=== PATIENT | male | born 1945 | race Caucasian/White ===

== ENCOUNTER 2017-05-12 10:24 | Outpatient (CLI) | payer MEDICARE, OTHER | END 2017-05-12 10:25 | disposition home or self-care (01) | LOC: SC 10:24 | PROVIDERS: ATTEND Internal Medicine Pulmonary Disease | DX: G47.33 Obstructive sleep apnea (adult) (pediatric) (principal); E66.9 Obesity, unspecified; Z68.39 Body mass index [BMI] 39.0-39.9, adult | CPT/HCPCS: 99203; G0463; 99212 ==

== ENCOUNTER 2017-06-30 18:53 | Outpatient (CLI) | payer MEDICARE, OTHER | END 2017-06-30 18:54 | disposition home or self-care (01) | LOC: SC 18:53 | PROVIDERS: ATTEND Internal Medicine Pulmonary Disease | DX: G47.33 Obstructive sleep apnea (adult) (pediatric) (principal); G47.61 Periodic limb movement disorder | CPT/HCPCS: 95810 ==

== ENCOUNTER 2017-07-21 13:03 | Outpatient (CLI) | payer MEDICARE, OTHER | END 2017-07-21 13:04 | disposition home or self-care (01) | LOC: SC 13:03 | PROVIDERS: ATTEND Internal Medicine Pulmonary Disease | DX: G47.33 Obstructive sleep apnea (adult) (pediatric) (principal) | CPT/HCPCS: 99213; G0463; 99212 ==

== ENCOUNTER 2017-09-28 14:38 | Outpatient (CLI) | payer MEDICARE, OTHER | END 2017-09-28 14:39 | disposition home or self-care (01) | LOC: SC 14:38 | PROVIDERS: ATTEND Nurse Practitioner Family | DX: G47.33 Obstructive sleep apnea (adult) (pediatric) (principal) | CPT/HCPCS: 99214; G0463; 99212 ==

== ENCOUNTER 2017-11-27 19:26 | Outpatient (CLI) | payer MEDICARE, OTHER | END 2017-11-27 19:27 | disposition home or self-care (01) | LOC: SC 19:26 | PROVIDERS: ATTEND Internal Medicine Pulmonary Disease | DX: G47.33 Obstructive sleep apnea (adult) (pediatric) (principal); G47.31 Primary central sleep apnea; G47.61 Periodic limb movement disorder | CPT/HCPCS: 95811 ==

== ENCOUNTER 2017-12-08 13:13 | Outpatient (CLI) | payer MEDICARE, OTHER | END 2017-12-08 13:14 | disposition home or self-care (01) | LOC: SC 13:13 | PROVIDERS: ATTEND Nurse Practitioner Family | DX: G47.33 Obstructive sleep apnea (adult) (pediatric) (principal); G47.31 Primary central sleep apnea; G47.61 Periodic limb movement disorder; I49.9 Cardiac arrhythmia, unspecified | CPT/HCPCS: 99215; G0463; 99212 ==

== ENCOUNTER 2018-01-07 08:46 | Outpatient (CLI) | payer MEDICARE, OTHER | END 2018-01-07 08:47 | disposition home or self-care (01) | LOC: SC 08:46 | PROVIDERS: ATTEND Nurse Practitioner Family | DX: G47.33 Obstructive sleep apnea (adult) (pediatric) (principal) | CPT/HCPCS: 99215; G0463; 99212 ==

== ENCOUNTER 2018-01-28 09:15 | Outpatient (CLI) | payer MEDICARE, OTHER | END 2018-01-28 09:16 | disposition home or self-care (01) | LOC: SC 09:15 | PROVIDERS: ATTEND Nurse Practitioner Family | DX: G47.33 Obstructive sleep apnea (adult) (pediatric) (principal) | CPT/HCPCS: 99214; G0463; 99212 ==

== ENCOUNTER 2018-03-04 09:40 | Outpatient (CLI) | payer MEDICARE, OTHER | END 2018-03-04 09:41 | disposition home or self-care (01) | LOC: SC 09:40 | PROVIDERS: ATTEND Nurse Practitioner Family | DX: G47.33 Obstructive sleep apnea (adult) (pediatric) (principal) | CPT/HCPCS: 99214; G0463; 99212 ==

== ENCOUNTER 2018-03-17 10:18 | Outpatient (CLI) | payer MEDICARE, OTHER ==
--- NOTE | 2018-03-17 12:05 | XRAY Report ---
Reason: LUMBAR SPINAL STENOSIS, HIP PAIN, RIGHT AND LEFT Procedure Date: 03/17/2018 Accession Number: [id number] / [id number] Procedure: XR - Lumbar Spine 2 View CPT Code: FULL RESULT: EXAM: LUMBOSACRAL SPINE RADIOGRAPHY EXAM DATE: 03/17/2018 10:42 AM. CLINICAL HISTORY: Lumbar spinal stenosis, hip pain, right and left. COMPARISONS: None. TECHNIQUE: 3 views. FINDINGS: Alignment: There is mild approximately 2 mm retrolisthesis of L4 on L5. There is relative straightening with loss of the normal lumbar lordosis. No significant scoliosis. Bones: Five jlo-hef-okanfzu lumbar vertebral bodies are present. There is mild loss of vertebral body height predominantly L2, less than 25%. Disks: Significant disk space degenerative changes including marginal osteophytosis are seen above and below the level of mild vertebral body height loss in the upper lumbar spine. Facets: There is moderate to severe facet arthropathy predominately at L5 and L4. Sacroiliac Joints: Unremarkable. Soft Tissues: Normal. The visualized bowel gas pattern is normal. IMPRESSION: Degenerative changes as well as mild loss of the L2 vertebral body height, less than 25%. RADIA
--- NOTE | 2018-03-17 12:57 | XRAY Report ---
Reason: LUMBAR SPINAL STENOSIS, HIP PAIN, RIGHT AND LEFT Procedure Date: 03/17/2018 Accession Number: [id number] / [id number] Procedure: XR - Hips 2V BILAT CPT Code: FULL RESULT: EXAM: BILATERAL HIP RADIOGRAPHY EXAM DATE: 03/17/2018 10:42 AM. CLINICAL HISTORY: Lumbar spinal stenosis, hip pain, right and left. COMPARISON: None. TECHNIQUE: 2 views each. FINDINGS: Bones: Normal. No fractures or bone lesion. Right Hip: No dislocation. The hip joint space is moderately narrowed. Left Hip: No dislocation. The hip joint space is mildly to moderately narrowed. Soft Tissues: Normal. No soft tissue swelling. IMPRESSION: No evidence of fracture or dislocation. Degenerative changes. RADIA
== END 2018-03-17 10:19 | disposition home or self-care (01) ==
LOC: DI 10:18
PROVIDERS: ATTEND Family Medicine
DX: M48.061 Spinal stenosis, lumbar region without neurogenic claudication (principal); M47.816 Spondylosis without myelopathy or radiculopathy, lumbar region; M25.78 Osteophyte, vertebrae; M25.552 Pain in left hip; M25.551 Pain in right hip
CPT/HCPCS: 72100; 73521

== ENCOUNTER 2018-03-26 13:02 | Outpatient (CLI) | payer MEDICARE, OTHER ==
--- NOTE | 2018-03-27 07:07 | MRI Report ---
Reason: LUMBAR SPINAL STENOSIS Procedure Date: 03/26/2018 Accession Number: [id number] / [id number] Procedure: MRI - Lumbar Spine W/O CPT Code: FULL RESULT: EXAM: MRI LUMBAR SPINE WITHOUT CONTRAST EXAM DATE: 03/26/2018 01:50 PM. CLINICAL HISTORY: Lumbar spinal stenosis. COMPARISON: LUMBAR SPINE 2 VIEW 03/17/2018 10:27 AM. TECHNIQUE: Multiplanar, multisequence T1-weighted and fluid-sensitive sequences of the lumbar spine from T11 to S1 without contrast. Other: None. FINDINGS: Spinal Canal: The conus terminates at L1. The conus medullaris is unremarkable. The nerve roots of the cauda equina have a wavy appearance, related to high-grade spinal canal stenosis in the mid to lower lumbar spine. On axial images, the nerve roots are centrally located, suspicious for arachnoiditis. Alignment: Retrolisthesis at L2-L3, L3-L4, L4-L5, and L5-S1 measure less than 4 mm. The normal lumbar lordosis is straightened. Bone Marrow: Five zdd-aak-pnzjwhu lumbar vertebral bodies are assumed. Type I Modic endplate changes are present from L1-L2 through L5-S1. Disk Levels/Facets: T11-T12: There is mild bilateral foraminal narrowing due to facet arthropathy on sagittal images. A minimal disk bulge is present without mass effect on the spinal cord. T12-L1: A disk bulge with facet arthropathy result in mild spinal canal stenosis. There is mild bilateral foraminal narrowing. L1-L2: A disk bulge with ligamentum flavum infolding result in mild spinal canal stenosis. There is mild right foraminal narrowing. The left foramen is patent. L2-L3: A disk bulge with ligamentum flavum infolding result in mild spinal canal stenosis. There is mild bilateral foraminal narrowing, worse on the right. L3-L4: A disk bulge with ligamentum flavum infolding result in moderate spinal canal stenosis. There is moderate bilateral foraminal narrowing. L4-L5: A disk bulge with facet arthropathy and ligamentum flavum infolding result in mild spinal canal stenosis. There is severe left foraminal narrowing due to a superimposed marginal osteophyte. Moderate right foraminal narrowing is present. L5-S1: A posterior disk osteophyte complex with facet arthropathy and ligamentum flavum infolding result in mild spinal canal stenosis. There is severe left and moderate right foraminal narrowing. Musculature: There is mild diffuse fatty atrophy of the posterior paraspinal muscles without intramuscular edema. Other: A cyst is noted in the right kidney. IMPRESSION: 1. Wavy configuration of centrally located nerve roots of the cauda equina is suspicious for arachnoiditis. 2. Severe multilevel degenerative changes result in moderate spinal canal stenosis at L3-L4. 3. Mild spinal canal stenosis is present at all other lumbar levels. 4. Varying degrees of bilateral foraminal narrowing, most severe on the left at L5-S1. 5. Type I Modic endplate changes are present from L1-L2 through L5-S1. Comment: The following findings are so common in adults without low back pain that while we report their presence, they must be interpreted with caution and in the context of the clinical situation. (Reference Inderjitk et al, Spine 2001) Prevalence of findings in patients without low back pain: Disk degeneration (any evidence): 92% Disk desiccation/T2 signal loss: 83% Disk height loss: 56% Disk bulge: 64% Disk protrusion: 32% Annular tear/high intensity zone: 38% RADIA
== END 2018-03-26 13:03 | disposition home or self-care (01) ==
LOC: DI 13:02
PROVIDERS: ATTEND Family Medicine
DX: M48.061 Spinal stenosis, lumbar region without neurogenic claudication (principal); M51.26 Other intervertebral disc displacement, lumbar region; M25.78 Osteophyte, vertebrae
CPT/HCPCS: 72148

== ENCOUNTER 2018-06-08 08:33 | Outpatient (CLI) | payer MEDICARE, OTHER | END 2018-06-08 08:34 | disposition home or self-care (01) | LOC: SC 08:33 | PROVIDERS: ATTEND Nurse Practitioner Family | DX: G47.33 Obstructive sleep apnea (adult) (pediatric) (principal) | CPT/HCPCS: 99214; G0463; 99212 ==

== ENCOUNTER 2018-07-22 08:37 | Outpatient (CLI) | payer MEDICARE, OTHER | END 2018-07-22 08:38 | disposition home or self-care (01) | LOC: SC 08:37 | PROVIDERS: ATTEND Nurse Practitioner Family | DX: G47.33 Obstructive sleep apnea (adult) (pediatric) (principal); G47.31 Primary central sleep apnea | CPT/HCPCS: 99214; G0463; 99212 ==

== ENCOUNTER 2019-03-24 15:35 | Outpatient (CLI) | payer MEDICARE, OTHER ==
--- NOTE | 2019-03-24 17:03 | XRAY Report ---
Reason: WHEEZING Procedure Date: 03/24/2019 Accession Number: [id number] / [id number] Procedure: WCP - Chest 2 View X-Ray CPT Code: 15415 Final Report FULL RESULT: EXAM: CHEST RADIOGRAPHY EXAM DATE: 03/24/2019 11:49 AM. CLINICAL HISTORY: WHEEZING. COMPARISON: CHEST 2 VIEW PA/LAT 03/15/2018 3:35 PM. TECHNIQUE: 2 views. FINDINGS: Lungs/Pleura: Mild bronchial thickening. No dense consolidation. No pleural effusions. No pneumothorax. Lung volumes increased. Mediastinum: Heart is enlarged. Aorta is mildly tortuous. Other: Degenerative changes of the thoracic spine and both shoulders. IMPRESSION: 1. Cardiomegaly. 2. Bronchial thickening which can be seen with bronchitis or reactive airways disease. No dense consolidation. RADIA
== END 2019-03-24 23:59 | disposition home or self-care (01) ==
LOC: DI.WCP 15:35
PROVIDERS: ATTEND Family Medicine
DX: R06.2 Wheezing (principal); I51.7 Cardiomegaly
CPT/HCPCS: 71046

== ENCOUNTER 2019-08-08 15:51 | Outpatient (CLI) | payer MEDICARE, OTHER ==
--- NOTE | 2019-08-08 14:47 | SLEEP CARE CONSULTATION ---
Information from patient questionnaire entered by Jeana Sutherland. I have reviewed and concur with the information entered by Jeana Sutherland. This document represents the service I personally performed and the decisions made by me, Soco Pérze, RN, MSN, VP OF PRODUCT. History of Present Illness Service Date and Time: 08/08/2019 1400 Previous diagnosis: Very Severe, Obstructive Sleep Apnea-Hypopnea Syndrome AHI: 60.0 Reason for follow up: annual Equipment type: BiPAP Equipment obtained from: [employer] (getting supplies) Mask style: Full face Mask brand: (old mask) Backup mask available: Yes (old mask ) Last cushion change: a few days ago Type of Sleep Study: Polysomnography CPAP Compliance Data - Data Reviewed with Patient Average duration of nightly device use: 5H 19M Compliance rate %: 77.2 Current pressure setting (cmH2O): 16/10 Humidity settin Heated hose settin Average residual AHI: 5.6 Subjective Patient concerns: reports: air blowing in eyes (tightens mask to reduce leaks - intermittent), dry mouth, nose, throat (mild dry mouth better since restarted humidity. ). denies: aerophagia, mask discomfort, mask leak noise, condensation in mask/hose, nasal congestion, epistaxis, other Current pressure setting perceived as: comfortable On therapy, patient: reports: more rested overall. denies: sleeping better (wakes every 2 hours as not comfortable /) Initial [place] Sleepiness Scale score: 6 Review of Systems Review of systems same as previous: No (hospitalized a month ago for pneumonia/ Covid but not 19 ) Impression and Plan 1. Obstructive Sleep Apnea-Hypopnea Syndrome, very severe, with good treatment compliance and mild elevation of residual AHI of 5.6. However, he states he was at higher BiPAP pressure and unable to tolerate. On BiPAP therapy, the patient is slightly more rested overall. He is still recovering from recent hospitalization for pneumonia. He also reports waking to generalized discomfort of back and knees about every 2 hours and it can take some time to get comfortable. I advised him to follow up with his PCP for further evaluation. If other sleep concerns, he is to contact this office. Currently he is only averaging 5 hours and 19 minutes. Most people reguire 7-9 hours and less than 5- 6 hours can increase health risks. It is hoped that if his discomfort can be addressed then he will sleep better with increased benefit form his BiPAP. As for his mask leaks occasionally in his eyes, I advised a eye mask but declined. I also suggested lubricating eye drops but he has other prescriptive eye drops for glaucoma so advised to check with his eye doctor if eye lubrication would help. To reduce oral dryness, he has restarted his humidity and heated hose but unsure how to adjust. The humidity is at 3 and heated hose at 5. With present symptoms these should be reversed. I will have Mara call to verbally instruct on phone. At that time they can inquire about the mask and if any other suggestions. Patient states this the best mask so far. Patient's apnea severity and rationale for treatment to reduce apnea, improve sleep quality and reduce cardiovascular and cerebrovascular events was reviewed. * Continue BiPAP pressure at 16/10 cmH2O * Adjust humidity / heated hose as instructed by Mara * Mask refitting inquiring by Mara * Follow up with PCP re back and knee discomfort awakening him. * Notify me if snoring with mask or feeling that the pressure is too much or too little * Call this office if any problems using CPAP * Return for follow up in 1 year , or sooner if concerns arise Visit Type: Telehealth Phone (to minimize risk of Covid 19 exposure) Patient Location: Home Other Participants: Spouse/Significant Other (heard in back ground at times to clarify patient questions ) Location of Provider: Home Patient agrees and consents to this telehealth visit type: Yes Patient agrees to have their insurance billed: Yes Time Spent with Patient (minutes): 10 Provider Statement: I spent 100% of the Telehealth Phone Call with the patient with greater than 50% spent counseling the patient and coordination of care.
== END 2019-08-08 15:52 | disposition home or self-care (01) ==
LOC: SC 15:51
PROVIDERS: ATTEND Nurse Practitioner Family
DX: G47.33 Obstructive sleep apnea (adult) (pediatric) (principal)

== ENCOUNTER 2019-08-18 09:06 | Outpatient (CLI) | payer MEDICARE, OTHER ==
--- NOTE | 2019-08-18 21:17 | XRAY Report ---
Reason: SHORTNESS OF BREATH Procedure Date: 08/18/2019 Accession Number: [id number] / [id number] Procedure: WCP - Chest 2 View X-Ray CPT Code: 43317 Final Report FULL RESULT: EXAM: CHEST RADIOGRAPHY EXAM DATE: 08/18/2019 09:06 AM. CLINICAL HISTORY: SHORTNESS OF BREATH. COMPARISON: CHEST 2 VIEW 03/24/2019 11:04 AM. TECHNIQUE: 2 views. FINDINGS: Lungs/Pleura: Mild perihilar vascular congestion and trace bilateral pleural effusions, suggestive of pulmonary edema. No focal opacities evident. No pleural effusion. No pneumothorax. Normal volumes. Mediastinum: Heart and mediastinal contours are unremarkable. Other: None. IMPRESSION: Mild perihilar vascular congestion and trace bilateral pleural effusions, suggestive of pulmonary edema. RADIA
== END 2019-08-18 09:07 | disposition home or self-care (01) ==
LOC: DI.WCP 09:06
PROVIDERS: ATTEND Family Medicine
DX: R06.02 Shortness of breath (principal); R09.89 Other specified symptoms and signs involving the circulatory and respiratory systems
CPT/HCPCS: 71046

== ENCOUNTER 2019-08-26 08:51 | Outpatient (CLI) | payer MEDICARE, OTHER | END 2019-08-26 08:52 | disposition home or self-care (01) | LOC: DI 08:51 | PROVIDERS: ATTEND Family Medicine | DX: I51.7 Cardiomegaly (principal); I49.3 Ventricular premature depolarization | CPT/HCPCS: 93306 ==

== ENCOUNTER 2019-10-13 13:00 | Outpatient (CLI) | payer MEDICARE, OTHER | END 2019-10-13 23:59 | disposition home or self-care (01) | LOC: LAB 13:00 | PROVIDERS: ATTEND Family Medicine | DX: J45.998 Other asthma (principal); Z20.828 Contact with and (suspected) exposure to other viral communicable diseases ==

== ENCOUNTER 2019-12-01 15:31 | Outpatient (CLI) | payer MEDICARE, OTHER ==
--- NOTE | 2019-12-01 17:03 | Ultrasound Report ---
PROCEDURE: Retroperitoneal INDICATIONS: KIDNEY DISEASE,CHRONIC STAGE III TECHNIQUE: Real-time scanning was performed of the retroperitoneal organs, with image documentation. COMPARISON: None. FINDINGS: Kidneys: Kidneys are normal in size. Right kidney measures 12.6 cm long; left kidney measures 11.4 cm long. Right renal cortical thickness is 1.5 cm; left renal cortical thickness is 1.5 cm. There is prominence of the renal sinus fat bilaterally. Cortical echogenicity appears increased bilat erally. Numerous small cortical cysts are present in each kidney, one of the largest in the right kid serina arises laterally and measures 1.7 cm. The largest in the left kidney measures 1.2 cm. There is a 1.0 cm parenchymal calcification in the lower pole of left kidney. No solid masses or hydronephrosis. Urinary bladder: The prevoid bladder volume is 252 cc. The post void residual is 9 cc. The visible po rtion of the prostate gland is enlarged measuring 6.9 x 5.4 x 7.0 cm. It is lobulated and indents on the base the urinary bladder. Bilateral ureteral jets are visible. No visible bladder masses or debri s. IMPRESSION: 1. Bilateral echogenic renal cortices suggesting chronic medical renal disease. 2. Bilateral cortical cysts. 3. Prostatomegaly. 4. Left kidney cortical calcification. Reviewed by: Marie Sanchez MD on 12/01/2019 5:02 PM PDT Approved by: Marie Sanchez MD on 12/01/2019 5:02 PM PDT Station ID: [id number]
== END 2019-12-01 15:32 | disposition home or self-care (01) ==
LOC: DI 15:31
PROVIDERS: ATTEND Family Medicine
DX: N18.3 Chronic kidney disease, stage 3 (moderate) (principal); N40.1 Benign prostatic hyperplasia with lower urinary tract symptoms; N28.1 Cyst of kidney, acquired; N28.89 Other specified disorders of kidney and ureter
CPT/HCPCS: 76770

== ENCOUNTER 2020-02-04 11:20 | Outpatient (CLI) | payer MEDICARE, OTHER ==
--- NOTE | 2020-02-04 14:33 | Ultrasound Report ---
PROCEDURE: Duplex Lwr Ext Arterial Bilat INDICATIONS: BILATERAL CLAUDICATION TECHNIQUE: Color and pulse Doppler interrogation was performed of both lower extremity arterial systems, with im age documentation. COMPARISON: None FINDINGS: Right lower extremity: Common femoral artery: 279 cm/sec, with triphasic flow. Deep femoral artery: 270 cm/sec, with triphasic flow. Proximal superficial femoral artery: 261 cm/sec, with monophasic flow. Mid superficial femoral artery: 32 cm/sec, with monophasic flow. Distal superficial femoral artery: 56 cm/sec, with monophasic flow. Popliteal artery: 61 cm/sec, with monophasic flow. Posterior tibial artery: 61 cm/sec, with monophasic flow. Anterior tibial artery/dorsalis pedis: 32 cm/sec, with monophasic flow. Duarte-scale imaging description: Atherosclerotic plaque is seen. Left lower extremity: Common femoral artery: 370 cm/sec, with monophasic flow. Deep femoral artery: 120 cm/sec, with monophasic flow. Proximal superficial femoral artery: 108 cm/sec, with biphasic flow. Mid superficial femoral artery: 75 cm/sec, with monophasic flow. Distal superficial femoral artery: 66 cm/sec, with monophasic flow. Popliteal artery: 71 cm/sec, with monophasic flow. Posterior tibial artery: 35 cm/sec, with monophasic flow. Anterior tibial artery/dorsalis pedis: 26 cm/sec, with monophasic flow. Duarte-scale imaging description: Atherosclerotic plaque can be seen. IMPRESSION: Increased flow velocity can be seen within both common femoral arteries, left worse than right, which is highly suggestive of inflow stenosis. Monophasic waveforms can be seen throughout the majority of the left lower extremity. Increased flow velocity is seen involving the origin of the right profunda femoris artery, which is c onsistent with a greater than 50% stenosis. Increased flow velocity is also seen involving the proximal right superficial femoral artery, which i s consistent with at least a 50% stenosis. Reviewed by: Randal Pozo MD on 02/04/2020 1:32 PM AKKATI Approved by: Randal Pozo MD on 02/04/2020 1:32 PM AKKATI Station ID: [id number]
== END 2020-02-04 11:21 | disposition home or self-care (01) ==
LOC: DI 11:20
PROVIDERS: ATTEND Family Medicine
DX: I73.9 Peripheral vascular disease, unspecified (principal)
CPT/HCPCS: 93925

== ENCOUNTER 2020-09-04 08:54 | Outpatient (CLI) | payer MEDICARE, OTHER ==
--- NOTE | 2020-09-04 09:43 | SLEEP CARE CONSULTATION ---
Information from patient questionnaire entered by Glenys Lopez. I have reviewed and concur with the information entered by Glenys Lopez. This document represents the service I personally performed and the decisions made by , Gloria Tamez ARNP. History of Present Illness Service Date and Time: 09/04/2020 0854 Previous diagnosis: Very Severe, Obstructive Sleep Apnea-Hypopnea Syndrome AHI: 60.0 (in 2018) Reason for follow up: annual (last seen 08/2019) Equipment type: BiPAP (S/T) Equipment obtained from: [employer] (getting supplies as needed) Mask style: Full face (Half 20 insert) Backup mask available: Yes (old mask) Prior sleep studies: Yes Year and Where: 2018 - [facility] Type of Sleep Study: Polysomnography HPI additional information: NAE GOTTI was diagnosed to have very severe, AHI 60.0, obstructive sleep apnea-hypopnea syndrome and returned today for BIPAP therapy annual follow-up. CPAP Compliance Data - Data Reviewed with Patient Average duration of nightly device use: 5 hr 14 min Compliance rate %: 84.4 (180 days) Current pressure setting (cmH2O): 12/ Humidity settin Average residual AHI: 17.9 Subjective Missed days of use due to: reports: illness, travel Patient concerns: reports: mask discomfort, air blowing in eyes, nasal congestion (uses nasal sprays to clear nose), dry mouth, nose, throat (not using the humidifier because not working). denies: aerophagia, mask leak noise, condensation in mask/hose, epistaxis, other Observed to snore while using device: No Current pressure setting perceived as: too high (just from not changing pressure and "gags him on pressure") On therapy, patient: reports: sleeping better, awakening more refreshed, being more awake and alert during the day, more rested overall. denies: drowsiness while driving Initial [place] Sleepiness Scale score: 6 (in 2018) Current [place] Sleepiness Scale score: 5 Allergies and Home Medications Home medication list reviewed: Yes (diuretic) Review of Systems Review of systems same as previous: No (hospital last week, fluid retention/breathing issues-heart related) Physical Exam Heart Rate: 55 O2 Saturation: 97 Height: 5 ft 9 in Weight: 256 lb Body Mass Index: 37.8 BMI Classification: Obese Impression and Plan 1. Obstructive Sleep Apnea-Hypopnea Syndrome, very severe, with good treatment compliance and fair apnea control with elevated residual AHI. On BIPAP therapy, the patient has better sleep quality and is more rested overall. He states the machine is not working properly. He states the humidity chamber heating element is not working, so he has just taken it off the machine. He is getting some nasal congestion and dry mouth with BIPAP use. He also states the the machine will pause in its regular in and out pressure but then on an inhale it will just push air for extended period. It wakes him up. He does not feel the pressure is right but cannot say if it is not enough or too much except when it wakes him up. He did take the BIPAP unit to be serviced back in February to [facility], [place] but for similar issues but they did not find anything. His compliance report shows a pressure of 12/4 cmH2O but his last prescription showed pressure of 16/10 cmH2O. This could be part of the reason the pressure feels off. I will have this adjusted back to 16/10 and have his machine serviced again. Patient's apnea severity and rationale for treatment to reduce apnea, improve sleep quality and reduce cardiovascular and cerebrovascular events was reviewed. I also reviewed the benefit of consistent device use of BIPAP for hypertension, cardiac disease, and depression. * Service BIPAP machine for malfunction * Change BIPAP pressure to 16/10 cmH2O * Notify me if snoring with mask or feeling that the pressure is too much or too little * Attempt to lose weight * Call this office if any problems using BIPAP * Return for follow up in 1 year, or sooner if concerns arise Counseling Topics: Spare mask, Weight loss health impact Visit Type: In Office Time Spent with Patient (minutes): 29 Provider Statement: I spent 100% of the Face to Face Visit with the patient with greater than 50% spent counseling the patient and coordination of care.
== END 2020-09-04 08:55 | disposition home or self-care (01) ==
LOC: SC 08:54
PROVIDERS: ATTEND Nurse Practitioner Family
DX: G47.33 Obstructive sleep apnea (adult) (pediatric) (principal); E66.9 Obesity, unspecified; Z68.37 Body mass index [BMI] 37.0-37.9, adult
CPT/HCPCS: 99213; G0463; 99212

== ENCOUNTER 2021-06-13 13:23 | Outpatient (CLI) | payer MEDICARE, OTHER ==
--- NOTE | 2021-06-13 14:58 | Ultrasound Report ---
PROCEDURE: Retroperitoneal INDICATIONS: ACUTE KIDNEY INJURY, OBSTRUCTIVE NEPHROPATHY TECHNIQUE: Real-time scanning was performed of the kidneys and bladder, with image documentation. COMPARISON: Renal ultrasound 12/01/2019 FINDINGS: Kidneys: Right kidney measures 12.0 cm long; left kidney measures 11.0 cm long. Right renal cortica l thickness is 1.5 cm; left renal cortical thickness is 1.5 cm. The renal cortex appears mildly hyper echoic bilaterally. Multiple right renal cysts are demonstrated with the largest measuring up to 3.0 x 2.7 x 2.0 cm posterior laterally in the inferior pole. There is a cyst within the interpolar region of the left kidney measuring up to 1.2 x 1.0 x 0.8 cm. No hydronephrosis. Bladder: Pre-void bladder volume is 363 mL. Post-void residual is 55 mL. Pre-void images demonstra te no intraluminal masses or stones. On pre-void images, bilateral ureteral jets are noted with colo r Doppler interrogation. The prostate is enlarged, measuring approximate 5.0 x 5.0 x 6.0 cm. Miscellaneous: No free pelvic fluid. IMPRESSION: 1. Bilateral mild renal cortical thinning. 2. Mild hyperechoic appearance of the renal cortex suggestive of medical renal disease. 3. No evidence of hydronephrosis. 4. Postvoid residual volume of 55 mL. The findings may reflect sequelae of bladder outlet obstruction secondary to prostatic enlargement. Reviewed by: Juan Sarmiento MD on 06/13/2021 2:57 PM PST Approved by: Juan Sarmiento MD on 06/13/2021 2:57 PM PST Station ID: [id number]
== END 2021-06-13 13:24 | disposition home or self-care (01) ==
LOC: DI 13:23
PROVIDERS: ATTEND Internal Medicine Nephrology
DX: N17.9 Acute kidney failure, unspecified (principal); N13.8 Other obstructive and reflux uropathy

== ENCOUNTER 2021-06-18 15:15 | Outpatient (CLI) | payer MEDICARE, OTHER | END 2021-06-18 15:16 | disposition left against medical advice (07) | LOC: EMS 15:15 | DX: J45.909 Unspecified asthma, uncomplicated (principal) ==

== ENCOUNTER 2021-09-19 17:12 | Outpatient (CLI) | payer MEDICARE, OTHER | END 2021-09-19 17:13 | disposition short-term general hospital (02) | LOC: EMS 17:12 | DX: R07.9 Chest pain, unspecified (principal) | CPT/HCPCS: A0425; A0427 ==

== ENCOUNTER 2021-10-11 08:00 | Outpatient (CLI) | payer MEDICARE, OTHER ==
[2021-10-11 11:08] LABS: FECAL OCCULT BLOOD (FIT) NEGATIVE (NEGATIVE)
== END 2021-10-11 23:59 | disposition home or self-care (01) ==
LOC: LAB.N 08:00
DX: D64.9 Anemia, unspecified (principal)
CPT/HCPCS: 82274

== ENCOUNTER 2022-03-04 08:00 | Outpatient (CLI) | payer MEDICARE, OTHER ==
[2022-03-04 12:05] LABS: HCT - HEMATOCRIT 31.2 % (42.0-52.0); MEAN CORPUSCULAR HEMOGLOBIN 30.3 pg (27.0-31.0); MEAN CORPUSCULAR HGB CONC 32.1 g/dL (32.0-36.0); MEAN CORPUSCULAR VOLUME 94.5 fL (80.0-94.0); RED BLOOD COUNT 3.3 10^6/uL (4.70-6.10); RED CELL DISTRIBUTION WIDTH 13.8 % (12.0-15.0); WHITE BLOOD COUNT 7.3 x10^3/uL (4.8-10.8)
[2022-03-04 12:25] LABS: ALBUMIN 3.7 g/dL (3.2-5.5); BILIRUBIN,TOTAL 0.6 mg/dL (0.2-1.0); CALCIUM 8.9 mg/dL (8.5-10.3); POTASSIUM 4.1 mmol/L (3.5-5.0); TOTAL PROTEIN 7.3 g/dL (6.7-8.2)
== END 2022-03-04 23:59 | disposition home or self-care (01) ==
LOC: LAB.N 08:00
PROVIDERS: ATTEND Nurse Practitioner
DX: I50.9 Heart failure, unspecified (principal)
CPT/HCPCS: 36415; 80053; 83880; 85027

== ENCOUNTER 2022-05-13 13:00 | Outpatient (CLI) | payer MEDICARE, OTHER ==
[2022-05-13 13:58] VITALS: BP 146/62
--- NOTE | 2022-05-13 13:58 | SLEEP CARE CONSULTATION ---
Information from patient questionnaire entered by Kendrick Guthrie. I have reviewed and concur with the information entered by Kendrick Guthrie. This document represents the service I personally performed and the decisions made by me, Gloria Tamez ARNP. History of Present Illness Service Date and Time: 05/13/2022 1300 Previous diagnosis: Very Severe, Obstructive Sleep Apnea-Hypopnea Syndrome AHI: 60.0 (in 2018) Reason for follow up: annual (LAST SEEN 09/2020) Equipment type: BiPAP (Vibes System One 60 series AVAPS s/u 01/2018) Equipment obtained from: [facility] ([employer]) Mask style: Full face Mask brand: Resmed ([id number]) Backup mask available: Yes (old mask) Last cushion change: 2 weeks Prior sleep studies: Yes Year and Where: 2017 - [facility] Type of Sleep Study: Polysomnography HPI additional information: NAE GOTTI was diagnosed to have severe, AHI 60.0, obstructive sleep apnea- hypopnea syndrome and returned today for BIPAP therapy annual follow-up. Sleep Study - Results Type of Sleep Study: Polysomnography Prior sleep studies: Yes Year and Where: 2017 - [facility] CPAP Compliance Data - Data Reviewed with Patient Average duration of nightly device use: 6 hours 6 minutes Compliance rate %: 92.8 (178/180 days used) Current pressure setting (cmH2O): 16/10 Average residual AHI: 8.9 Central apnea: 1.3 Obstructive apnea: 0 Hypopnea: 7.6 Average large leak: 62.6 l/min Subjective Missed days of use due to: reports: illness (in hospital) Patient concerns: reports: mask discomfort, air blowing in eyes, mask leak noise (tries to adjust mask), nasal congestion (just at night; has it without mask too), dry mouth, nose, throat. denies: aerophagia, condensation in mask/hose, epistaxis Observed to snore while using device: No Current pressure setting perceived as: comfortable On therapy, patient: reports: sleeping better, awakening more refreshed, being more awake and alert during the day, more rested overall. denies: drowsiness while driving Initial [place] Sleepiness Scale score: 6 (in 2018) Current [place] Sleepiness Scale score: 6 (05/13/22) Allergies and Home Medications Drug allergies reviewed: No Home medication list reviewed: Yes (no changes) Review of Systems Review of systems same as previous: No (hospitalizations for asthma) Physical Exam Vital signs obtained and entered by: KENDRICK Beach MA Blood Pressure: 146/62 (LEFT ARM) Cuff size: regular Heart Rate: 54 O2 Saturation: 94 Height: 5 ft 9 in Weight: 237 lb 9.6 oz Body Mass Index: 35.1 BMI Classification: Obese Impression and Plan 1. Obstructive Sleep Apnea-Hypopnea Syndrome, severe, with good treatment compliance and fair apnea control. On BIPAP therapy, the patient has better sleep quality and is more rested overall. Patient has significant improvement of their sleep apnea although it is slightly ineffective and are satisfied with current CPAP therapy. He is happy with current pressure settings and no changes will be made. He is not happy with mask, I showed him several in the office but he did not want to change at this time. Patient's apnea severity and rationale for treatment to reduce apnea, improve sleep quality and reduce cardiovascular and cerebrovascular events was reviewed. I also reviewed the benefit of consistent device use of BIPAP for hypertension, cardiac disease and depression. 2. Obesity, unspecified. Currently patients BMI is 35.1. Obesity increases the risk of apnea, BIPAP pressure requirements and overall health risks especially cardiovascular and diabetes. Thus patient is advised to lose weight. * Continue BIPAP pressure at 16/10 cmH2O * Update service * Notify me if snoring with mask or feeling that the pressure is too much or too little * Attempt to lose weight * Call this office if any problems using BIPAP * Return for follow up in 1 year, or sooner if concerns arise Counseling Topics: Spare mask, Weight loss health impact Visit Type: In Office Time Spent with Patient (minutes): 22 Provider Statement: I spent 100% of the Face to Face Visit with the patient with greater than 50% spent counseling the patient and coordination of care.
== END 2022-05-13 13:01 | disposition home or self-care (01) ==
LOC: SC 13:00
PROVIDERS: ATTEND Nurse Practitioner Family
DX: G47.33 Obstructive sleep apnea (adult) (pediatric) (principal); E66.9 Obesity, unspecified; Z68.35 Body mass index [BMI] 35.0-35.9, adult
CPT/HCPCS: 99213; G0463; 99212

== ENCOUNTER 2023-04-29 12:34 | Outpatient (CLI) | payer MEDICARE, OTHER | END 2023-04-29 23:59 | disposition short-term general hospital (02) | LOC: EMS 12:34 | DX: R07.89 Other chest pain (principal); Z99.2 Dependence on renal dialysis | CPT/HCPCS: A0425; A0429 ==

== ENCOUNTER 2023-05-05 00:25 | Outpatient (CLI) | payer MEDICARE, OTHER | END 2023-05-05 00:26 | disposition left against medical advice (07) | LOC: EMS 00:25 | DX: I26.99 Other pulmonary embolism without acute cor pulmonale (principal); R68.83 Chills (without fever); R53.83 Other fatigue; Z20.822 Contact with and (suspected) exposure to COVID-19; Z99.2 Dependence on renal dialysis; Z79.01 Long term (current) use of anticoagulants ==

== ENCOUNTER 2023-05-05 08:00 | Outpatient (CLI) | payer MEDICARE, OTHER | END 2023-05-05 08:01 | disposition home or self-care (01) | LOC: LAB.N 08:00 | PROVIDERS: ATTEND Physician Assistant | DX: U07.1 COVID-19 (principal) ==

== ENCOUNTER 2023-05-05 11:08 | Outpatient (CLI) | payer MEDICARE, OTHER | END 2023-05-05 23:59 | disposition short-term general hospital (02) | LOC: EMS 11:08 | DX: R06.02 Shortness of breath (principal); I26.99 Other pulmonary embolism without acute cor pulmonale; Z20.822 Contact with and (suspected) exposure to COVID-19; Z99.2 Dependence on renal dialysis; Z79.01 Long term (current) use of anticoagulants | CPT/HCPCS: A0425; A0429 ==

== ENCOUNTER 2023-06-16 17:18 | Outpatient (CLI) | payer MEDICARE, OTHER | END 2023-06-16 17:19 | disposition short-term general hospital (02) | LOC: EMS 17:18 | DX: R07.89 Other chest pain (principal); R42 Dizziness and giddiness | CPT/HCPCS: A0425; A0429 ==

== ENCOUNTER 2023-06-18 08:00 | Outpatient (CLI) | payer MEDICARE, OTHER | END 2023-06-18 23:59 | disposition home or self-care (01) | LOC: PC 08:00 | PROVIDERS: ATTEND Nurse Practitioner Gerontology | DX: Z51.5 Encounter for palliative care (principal); I12.0 Hypertensive chronic kidney disease with stage 5 chronic kidney disease or end stage renal disease; N18.5 Chronic kidney disease, stage 5; Z99.2 Dependence on renal dialysis; I95.1 Orthostatic hypotension; E89.0 Postprocedural hypothyroidism; N40.0 Benign prostatic hyperplasia without lower urinary tract symptoms; R07.9 Chest pain, unspecified; Z71.89 Other specified counseling; Z66 Do not resuscitate | CPT/HCPCS: 99350 ==

== ENCOUNTER 2023-07-05 08:00 | Outpatient (CLI) | payer MEDICARE, OTHER | END 2023-07-05 23:59 | disposition home or self-care (01) | LOC: PC 08:00 | PROVIDERS: ATTEND Nurse Practitioner Gerontology | DX: Z51.5 Encounter for palliative care (principal); N18.5 Chronic kidney disease, stage 5; F32.9 Major depressive disorder, single episode, unspecified | CPT/HCPCS: 99426 ==

== ENCOUNTER 2023-07-14 08:00 | Outpatient (CLI) | payer MEDICARE, OTHER | END 2023-07-14 23:59 | disposition home or self-care (01) | LOC: PC 08:00 | PROVIDERS: ATTEND Nurse Practitioner Gerontology | DX: Z51.5 Encounter for palliative care (principal); I13.2 Hypertensive heart and chronic kidney disease with heart failure and with stage 5 chronic kidney disease, or end stage renal disease; N18.6 End stage renal disease; I50.32 Chronic diastolic (congestive) heart failure; Z99.2 Dependence on renal dialysis; R63.5 Abnormal weight gain; B35.0 Tinea barbae and tinea capitis; Z66 Do not resuscitate | CPT/HCPCS: 99350 ==

== ENCOUNTER 2023-08-04 08:00 | Outpatient (CLI) | payer MEDICARE, OTHER | END 2023-08-04 23:59 | disposition home or self-care (01) | LOC: PC 08:00 | PROVIDERS: ATTEND Nurse Practitioner Gerontology | DX: Z51.5 Encounter for palliative care (principal); F32.A Depression, unspecified; N18.5 Chronic kidney disease, stage 5 | CPT/HCPCS: 99426 ==

== ENCOUNTER 2023-09-10 08:00 | Outpatient (CLI) | payer MEDICARE, OTHER | END 2023-09-10 23:59 | disposition home or self-care (01) | LOC: PC 08:00 | PROVIDERS: ATTEND Nurse Practitioner Gerontology | DX: Z51.5 Encounter for palliative care (principal); I13.0 Hypertensive heart and chronic kidney disease with heart failure and stage 1 through stage 4 chronic kidney disease, or unspecified chronic kidney disease; N18.6 End stage renal disease; I50.32 Chronic diastolic (congestive) heart failure; I25.10 Atherosclerotic heart disease of native coronary artery without angina pectoris; I48.91 Unspecified atrial fibrillation; G89.29 Other chronic pain; Z71.89 Other specified counseling; Z79.82 Long term (current) use of aspirin; Z79.899 Other long term (current) drug therapy; Z99.2 Dependence on renal dialysis | CPT/HCPCS: 99349 ==

== ENCOUNTER 2023-10-07 18:24 | Outpatient (CLI) | payer MEDICARE, OTHER | END 2023-10-07 18:25 | disposition critical access hospital (66) | LOC: EMS 18:24 | DX: S01.81XA Laceration without foreign body of other part of head, initial encounter (principal); R55 Syncope and collapse; Y92.531 Health care provider office as the place of occurrence of the external cause; Z99.2 Dependence on renal dialysis; Z79.01 Long term (current) use of anticoagulants | CPT/HCPCS: A0425; A0429 ==

== ENCOUNTER 2023-10-07 18:44 | Emergency (ER) | payer MEDICARE, OTHER ==
[2023-10-07 19:07] LABS: BASOPHILS # (AUTO) 0.1 10^3/uL (0.0-0.1); BASOPHILS % (AUTO) 0.8 %; EOSINOPHILS # (AUTO) 0.3 10^3/uL (0.0-0.7); EOSINOPHILS % (AUTO) 4.6 %; HCT - HEMATOCRIT 40.6 % (42.0-52.0); HGB - HEMOGLOBIN 13.6 g/dL (14.0-18.0); LYMPHOCYTES # (AUTO) 1.3 10^3/uL (1.5-3.5); LYMPHOCYTES % (AUTO) 16.9 %; MEAN CORPUSCULAR HEMOGLOBIN 32.9 pg (27.0-31.0); MEAN CORPUSCULAR HGB CONC 33.5 g/dL (32.0-36.0); MEAN CORPUSCULAR VOLUME 98.3 fL (80.0-94.0); MONOCYTES # (AUTO) 0.6 10^3/uL (0.0-1.0); MONOCYTES % (AUTO) 8.3 %; NEUTROPHILS # (AUTO) 5.1 10^3/uL (1.5-6.6); PLT - PLATELET COUNT 170 10^3/uL (130-450); RED BLOOD COUNT 4.13 10^6/uL (4.70-6.10); RED CELL DISTRIBUTION WIDTH 12.4 % (12.0-15.0); WHITE BLOOD COUNT 7.4 x10^3/uL (4.8-10.8)
[2023-10-07 19:21] LABS: ALBUMIN 4.8 g/dL (3.2-5.5); ALBUMIN/GLOBULIN RATIO 1.5 (1.0-2.2); BILIRUBIN,TOTAL 0.5 mg/dL (0.2-1.0); CALCIUM 9.5 mg/dL (8.5-10.3); CREATININE 3.8 mg/dL (0.6-1.3); POTASSIUM 3.8 mmol/L (3.5-4.5)
--- NOTE | 2023-10-07 20:01 | ED Physician Documentation ---
History of Present Illness - Stated complaint Stated Complaint: GLF - Chief complaint Chief Complaint: Trauma Hd/Nk - History obtained from History obtained from: Patient, Family, EMS - History of Present Illness Timing: How many hours ago (1) Pain level max: 2 Pain level now: 2 - Additonal information Additional information: Patient is an 78-year-old male who was at dialysis today. Immediately after dialysis he stood up, felt lightheaded dizzy and fell backwards striking his head on the ground. Believes that he may have lost consciousness. Denies any neck pain at this time. He states he does remember feeling lightheaded and dizzy, unsure if he passed out from hitting the ground or before he hit the ground. No chest pain or palpitations. Has an abrasion to the back of the head. Review of Systems Constitutional: denies: Fever, Chills Cardiac: denies: Chest pain / pressure, Palpitations, Calf pain Respiratory: denies: Cough GI: denies: Abdominal Pain, Nausea, Vomiting, Diarrhea Skin: denies: Rash Musculoskeletal: denies: Neck pain, Back pain PD PAST MEDICAL HISTORY - Past Medical History Past Medical History: Yes Cardiovascular: Hypertension, High cholesterol : Benign prostate hypertrophy, Dialysis - Past Surgical History Past Surgical History: No - Present Medications Home Medications: Ambulatory Orders Medication Instructions Recorded Confirmed Albuterol Sulfate [Proventil Hfa] 2 puffs INH Q4HR PRN 01/15/23 10/07/23 Apixaban [Eliquis] 2.5 tab PO BID 01/15/23 10/07/23 Atorvastatin [Lipitor] 20 mg PO DAILY 01/15/23 10/07/23 Colchicine 1 tab PO DAILY PM 01/15/23 01/15/23 Ezetimibe [Zetia] 1 tab PO DAILY 01/15/23 01/15/23 Ferrous Sulfate [Feosol] 1 tab PO BID 01/15/23 01/15/23 Finasteride [Proscar] 1 tab PO DAILY 01/15/23 01/15/23 Furosemide [Lasix] 40 tab PO BID 01/15/23 10/07/23 Hydralazine HCl 75 mg PO TID 01/15/23 01/15/23 Latanoprost 0.005% Ophth Drops 1 drops OP QPM 01/15/23 10/07/23 [Xalatan Ophth Drops] Metoprolol Succinate [Toprol Xl] 25 mg PO BID 01/15/23 10/07/23 Montelukast Sodium 10 mg PO QPM 01/15/23 10/07/23 Nitroglycerin [Nitrostat] 1 tab SL PRN PRN 01/15/23 10/07/23 Tamsulosin HCl [Flomax] 2 tab PO QPM 01/15/23 10/07/23 Trospium Chloride 20 mg PO DAILY 01/15/23 10/07/23 oxyCODONE [Roxicodone] 5 mg PO Q6H PRN 01/15/23 10/07/23 Levothyroxine Sodium 1 cap PO DAILY 10/07/23 10/07/23 - Allergies Allergies/Adverse Reactions: Allergies Allergy/AdvReac Type Severity Reaction Status Date / Time influenza A (H5N1) virus AdvReac Unknown Verified 10/07/23 19:50 vaccine mo - Social History Does the pt smoke?: No Smoking Status: Never smoker PD ED PE NORMAL - Vitals Vital signs reviewed: Yes - General General: Alert and oriented X 3, No acute distress - HEENT HEENT: PERRL, Moist mucous membranes, Other (Small abrasion to the occiput.) - Neck Neck: Supple, no meningeal sign, No bony TTP, Other (No tenderness to palpation. No step-off or deformity. Full range of motion without pain) - Cardiac Cardiac: RRR, Strong equal pulses - Respiratory Respiratory: No respiratory distress, Clear bilaterally - Abdomen Abdomen: Soft, Non tender, Non distended - Back Back: No spinal TTP - Derm Derm: Warm and dry - Extremities Extremities: No deformity, Normal ROM s pain - Neuro Neuro: Alert and oriented X 3, dust sampler 2-12 intact, No motor deficit, No sensory deficit, Normal speech Eye Opening: Spontaneous Motor: Obeys Commands Verbal: Oriented GCS Score: 15 - Psych Psych: Normal mood, Normal affect Results - Vitals Vitals: Oxygen O2 Source Room air - EKG (time done) 1921 EKG releavant findings:: EKG personally interpreted by author of this note. Relevant findings are: Rate: Rate (enter#) (64) Rhythm: NSR [place]: Anterior hemiblock (LAFB) Intervals: Prolonged [place], RBBB - Labs Labs: Laboratory Tests 10/07/23 10/07/23 18:52 18:52 WBC 7.4 RBC 4.13 L Hgb 13.6 L Hct 40.6 L MCV 98.3 H MCH 32.9 H MCHC 33.5 RDW 12.4 Plt Count 170 MPV 11.0 Neut # (Auto) 5.1 Lymph # (Auto) 1.3 L [place] # (Auto) 0.6 Eos # (Auto) 0.3 Baso # (Auto) 0.1 Absolute Nucleated RBC 0.00 Nucleated RBC % 0.0 Sodium 134 L Potassium 3.8 Chloride 94 L Carbon Dioxide 28 Anion Gap 12.0 BUN 31 H Creatinine 3.8 H Estimated GFR (MDRD) 15 L Glucose 140 H Calcium 9.5 Total Bilirubin 0.5 AST 20 ALT 13 Alkaline Phosphatase 42 Total Protein 8.0 Albumin 4.8 Globulin 3.2 Albumin/Globulin Ratio 1.5 Lipase 72 - Rads (name of study) Head CT Relevant Findings:: Final report received, See rad report PD Medical Decision Making - ED course Complexity details: reviewed results, re-evaluated patient, considered differential, d/w patient ED course: 78-year-old male with a syncopal event after dialysis today. Occurred when he stood up quickly. no chest pain. No shortness of breath. Likely related to fluid shift. No acute findings on head CT. No neck or back pain. No focal neurological deficits. Ambulating without difficulty. No arrhythmias on telemetry. Does not want to stay for observation in the hospital. Recommend that he follow-up with his doctor for further care. Patient counseled regarding signs and symptoms for which I believe and urgent re-evaluation would be necessary. Patient with good understanding of and agreement to plan and is comfortable going home at this time This document was made in part using voice recognition software. While efforts are made to proofread this document, sound alike and grammatical errors may occur. Departure - Departure Disposition: 01 Home, Self Care Clinical Impression: Syncope Qualifiers: Syncope type: unspecified Qualified Code(s): R55 - Syncope and collapse Closed head injury Qualifiers: Encounter type: initial encounter Qualified Code(s): S09.90XA - Unspecified injury of head, initial encounter Condition: Good Instructions: ED Head Injury Closed, ED Syncope Vasovagal Follow-Up: Your,doctor in 1 week [Other] Comments: Your head CT does not show any acute abnormalities. Your laboratory testing does not show any acute abnormalities either. Make sure you are drinking plenty of fluids. Please follow-up with your doctor for further care and return if you worsen. It is likely that your syncopal event was caused by your dialysis today. Forms: PCP List Discharge Date/Time: 10/07/23 21:05
--- NOTE | 2023-10-07 20:12 | CT Report ---
PROCEDURE: Head WO INDICATIONS: fall, head injury TECHNIQUE: Noncontrast 4.5 mm thick angled axial sections acquired from the foramen magnum to the vertex. For r adiation dose reduction, the following was used: automated exposure control, adjustment of mA and/or kV according to patient size. COMPARISON: None. FINDINGS: Image quality: Diagnostic CSF spaces: Basal cisterns are patent. Lateral ventricles are symmetric. Volume: Vascular calcifications. Periventricular white matter disease is commonly seen with chronic m icroangiopathy. Volume loss is present. These findings are mild to moderate. Brain: No intracranial hemorrhage. Duarte-white differentiation is grossly maintained. Craniofacial structures: Mild mucosal thickening of the paranasal sinuses. Right posterior scalp keith christopher and soft tissue contusion. IMPRESSION: No acute intracranial hemorrhage. Right posterior scalp hematoma/contusion. Reviewed by: Ulisses Jacobsen MD on 10/07/2023 8:11 PM PDT Approved by: Ulisses Jacobsen MD on 10/07/2023 8:11 PM PDT Station ID: [id number]
[2023-10-07 21:24] VITALS: BP 157/73; O2SAT 98
== END 2023-10-07 21:05 | disposition home or self-care (01) ==
LOC: EDUNIT# → ED 18:44
DX: S09.90XA Unspecified injury of head, initial encounter (principal); R52 Pain, unspecified; W18.39XA Other fall on same level, initial encounter; I10 Essential (primary) hypertension; E78.00 Pure hypercholesterolemia, unspecified; N40.0 Benign prostatic hyperplasia without lower urinary tract symptoms; Z99.2 Dependence on renal dialysis; Z79.01 Long term (current) use of anticoagulants; Z79.899 Other long term (current) drug therapy
CPT/HCPCS: 36415; 80053; 83690; 85025; 93005; 99283; 99284

== ENCOUNTER 2023-10-16 08:00 | Outpatient (CLI) | payer MEDICARE, OTHER | END 2023-10-16 23:59 | disposition home or self-care (01) | LOC: PC 08:00 | PROVIDERS: ATTEND Nurse Practitioner Gerontology | DX: Z51.5 Encounter for palliative care (principal); I13.2 Hypertensive heart and chronic kidney disease with heart failure and with stage 5 chronic kidney disease, or end stage renal disease; I50.32 Chronic diastolic (congestive) heart failure; N18.5 Chronic kidney disease, stage 5; I48.91 Unspecified atrial fibrillation; T40.2X5A Adverse effect of other opioids, initial encounter; K59.03 Drug induced constipation; M25.562 Pain in left knee; S82.202S Unspecified fracture of shaft of left tibia, sequela; W19.XXXS Unspecified fall, sequela; M25.462 Effusion, left knee; S06.2XAD Diffuse traumatic brain injury with loss of consciousness status unknown, subsequent encounter; W19.XXXD Unspecified fall, subsequent encounter; Z71.89 Other specified counseling; Z99.2 Dependence on renal dialysis | CPT/HCPCS: 99350 ==

== ENCOUNTER 2023-11-03 01:49 | Outpatient (CLI) | payer MEDICARE, OTHER | END 2023-11-03 23:59 | disposition short-term general hospital (02) | LOC: EMS 01:49 | DX: R20.0 Anesthesia of skin (principal); T82.848A Pain due to vascular prosthetic devices, implants and grafts, initial encounter; Z99.2 Dependence on renal dialysis | CPT/HCPCS: A0425; A0429; A0888 ==

== ENCOUNTER 2023-11-04 08:00 | Outpatient (CLI) | payer MEDICARE, OTHER | END 2023-11-04 23:59 | disposition home or self-care (01) | LOC: PC 08:00 | PROVIDERS: ATTEND Nurse Practitioner Gerontology | DX: Z51.5 Encounter for palliative care (principal); N18.5 Chronic kidney disease, stage 5; F32.9 Major depressive disorder, single episode, unspecified | CPT/HCPCS: 99426; 99427 ==

== ENCOUNTER 2023-11-06 08:00 | Outpatient (CLI) | payer MEDICARE, OTHER | END 2023-11-06 23:59 | disposition home or self-care (01) | LOC: PC 08:00 | PROVIDERS: ATTEND Nurse Practitioner Gerontology | DX: Z51.5 Encounter for palliative care (principal); N18.6 End stage renal disease; R20.0 Anesthesia of skin; R53.1 Weakness; R06.02 Shortness of breath; R53.83 Other fatigue; R45.89 Other symptoms and signs involving emotional state; Z99.2 Dependence on renal dialysis; Z79.899 Other long term (current) drug therapy; Z79.01 Long term (current) use of anticoagulants; Z79.82 Long term (current) use of aspirin; Z66 Do not resuscitate; Z86.711 Personal history of pulmonary embolism; Z71.89 Other specified counseling; S06.37AD Contusion, laceration, and hemorrhage of cerebellum with loss of consciousness status unknown, subsequent encounter; W19.XXXD Unspecified fall, subsequent encounter | CPT/HCPCS: 99349 ==

== ENCOUNTER 2023-11-24 09:48 | Outpatient (CLI) | payer MEDICARE, OTHER ==
--- NOTE | 2023-11-25 17:20 | XRAY Report ---
PROCEDURE: Ankle 3+V LT INDICATIONS: ANKLE FX TECHNIQUE: 3 views of the ankle were acquired. COMPARISON: None FINDINGS: Bones: Oblique distal fibular fracture with remodeling and bridging callus. Normal bone mineralizati on. Ankle mortise maintained Soft tissues: Unremarkable without significant soft tissue swelling. No radiopaque foreign body. IMPRESSION: Healing oblique distal fibular fracture Reviewed by: Demario Davila MD on 11/25/2023 4:18 PM AKDT Approved by: Demario Davila MD on 11/25/2023 4:18 PM AKDT Station ID: [id number]
== END 2023-11-24 09:49 | disposition home or self-care (01) ==
LOC: DI 09:48
PROVIDERS: ATTEND Registered Nurse
DX: S82.832D Other fracture of upper and lower end of left fibula, subsequent encounter for closed fracture with routine healing (principal)

== ENCOUNTER 2023-12-01 12:00 | Outpatient (CLI) | payer MEDICARE, OTHER | END 2023-12-01 23:59 | disposition home or self-care (01) | LOC: PC 12:00 | PROVIDERS: ATTEND Nurse Practitioner Gerontology | DX: Z51.5 Encounter for palliative care (principal); N18.5 Chronic kidney disease, stage 5; N26.9 Renal sclerosis, unspecified; D63.1 Anemia in chronic kidney disease; S82.292S Other fracture of shaft of left tibia, sequela | CPT/HCPCS: 99349 ==